=== PATIENT | female | born 1935 ===

== ENCOUNTER 2023-06-08 10:56 | Outpatient (AMB) | payer MEDICARE, BC, SELFPAY ==
--- NOTE | 2023-06-08 11:03 | A.OFFVIS_ITS ---
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 She reports here with daughter Betsy. Pts daughter reports there have been major changes in pt's life than she feels have contributed to some memory changes. Pts was placed in assisted living, she had to move out of her home, she's had 2 major falls requiring surgery. She has become forgetful, forgetting to pay bills, not as organized as before. 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 Allergies bacitracin Allergy (Intermediate, Verified 06/08/23 11:15) Hives codeine Allergy (Intermediate, Verified 06/08/23 11:15) Vomiting methimazole [From Tapazole] Allergy (Intermediate, Verified 06/08/23 11:15) Vomiting trazodone Allergy (Intermediate, Verified 06/08/23 11:15) Vomiting percocet Allergy (Mild, Uncoded 06/08/23 11:15) Anxiety Medication List - Last Reconciled 06/08/23 by Padmaja Fong MD donepezil 10 mg PO DAILY levothyroxine 88 mcg PO DAILY rosuvastatin 5 mg PO DAILY sertraline 25 mg PO DAILY warfarin 5 mg PO DAILY HPI HPI Comments History of Present Illness Details 87y/o right handed female comes for eval uation of short term memory issues. SHe is accompanied by her daughter who helps with history .The family noticed memory issues 2 years ago which has been worse for past 6 mths.she frequently forgets to take medications, needs help with medications now, unable to takes care of her bills and finances,forgets conversations, forgets to go to activities etc. she has meals delivered for her and she microwaves.she is at an independent fdc.she knows her children , grand children.No hallucinations, no delusions. she sleeps good but has poor sleep hygiene.she sleeps late and wakes up at noon. [facility] [place] [facility]. She is on sertraline for mood . But she denies any depression or anxiety. 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 [facility] Medical History Hyperlipidemia GERD (gastroesophageal reflux disease) Hypothyroid SVT (supraventricular tachycardia) Breast cancer Emphysema lung Osteoarthritis HTN (hypertension) Atrial fibrillation Mild cognitive impairment Pacemaker Surgical History H/O eye surgery H/O thyroidectomy H/O lumpectomy History of hip replacement Family History Father No problems noted. Mother No problems noted. Brother No problems noted. Sister No problems noted. Social History Household Members: None Housing: Apartment Alcohol intake: never Patient Tobacco Use Status: Former Tobacco user Years Smoked: x 24 years - 2 ppd quit at age 38 Physical Exam Vital Signs: Last Vital Signs Pulse 71 06/08/23 11:05 Resp 17 06/08/23 11:05 BP 146/82 H 06/08/23 11:05 Pulse Ox 94 06/08/23 11:05 Oxygen Delivery Method Room Air 06/08/23 11:05 BMI result Body Mass Index 23.0 Const General: cooperative, healthy appearing, comfortable and no acute distress Nutritional Appearance: average body habitus Orientation/consciousness: patient oriented x3 Neuro Other: Felix Proptosis L>R EOM- decrease left gaze General: patient oriented x3 and moves all extremities Cranial nerves: Yes Facial sensation intact/muscles of mastication intact, Yes Nystagmus not present, Yes Normal facial strength present, Yes Midline tongue present and Yes Symmetric palate elevation present Cognition (Neuro): normal cognition Gait exam (Neuro): Antalgic gait present Motor exam (neuro): 5/5 motor strength present throughout and Normal motor muscle tone present throughout Deep tendon reflexes (DTR's): Right triceps reflex intensity grade: 1+, Left triceps reflex intensity grade: 1+, Rt Biceps (C5, C6): 1+, Left biceps reflex intensity grade: 1+, Right brachioradialis reflex intensity grade: 1+, Left brachioradialis reflex intensity grade: 1+, Right patellar reflex intensity grade: 1+ and Left patellar reflex intensity grade: 1+ Coordination: [id number] test normal Orientation What is the (year) (season) (date) (day) (month)?: year, season, date, day and month Where are we (state) (county) (town or city) (hospital) (floor)?: state, county, town or city, hospital/clinic and floor Registration Name of 3 unrelated objects clearly and slowly, then ask patient to repeat all 3 of them. (1st repeat determines score. Make sure they can repeat all three): object 1, object 2 and object 3 Attention & Calculation (CHOOSE ONE) Spell WORLD backwards (DLROW): 1 letter Recall Ask patient to repeat the 3 items from question #3.: object 2 and object 3 Language Show patient a wristwatch & ask what it is. Repeat for pencil.: watch and pencil Ask the patient to repeat the phrase 'No ifs, ands, or buts' after you.: correct Ask the patient to 'take a piece of paper with their right hand' 'fold paper in half' 'place paper on floor': take paper in right hand, fold paper in half and place paper on floor Print the sentence 'CLOSE YOUR EYES' on a piece. If patient actually closes eyes then score.: followed written direction Give patient a blank piece of paper & ask to write a sentence. Score if it contains a noun & verb.: sentence contains subject and verb Ask patient to copy figure of intersecting pentagons exactly. Score if all 10 angles & 2 intersects are included.: all 10 angles present & 2 are intersected Score Score: 25 Assessment & Plan Assessment & Plan (1) Mild cognitive impairment: Comment: worsened by dysthymia, poor sleep Code(s): G31.84 - Mild cognitive impairment of uncertain or unknown etiology Plan Reviewed PCPs notes- CT labs etc I will trial her on memantine XR 7mg qd continue donepezil 10mg qd Increase sertraline 50mg qd Increase social stimulation Wear hearing aids consistently Add daily structure and sleep hygiene. Medications: New memantine 7 mg PO DAILY 30 ea 0RF sertraline 50 mg (2 x 25 mg) PO DAILY 30 tabs 6RF Coding Level of Care Code New Pt Level 4 (61112) Diagnoses Mild cognitive impairment G31.84
[2023-06-08 11:05] VITALS: BP 146/82; PULSE 71; RESP 17; O2SAT 94; BMI 23.0
== END 2023-06-08 11:56 | disposition home or self-care (01) ==
PROVIDERS: PCP Internal Medicine; Visit Provider Psychiatry & Neurology Neurology
DX: G31.84 Mild cognitive impairment of uncertain or unknown etiology (principal)
CPT/HCPCS: 99204

== ENCOUNTER → 2023-06-08 10:56 | Outpatient (BNVA) | payer MEDICARE, BC, SELFPAY | PROVIDERS: PCP Internal Medicine; Visit Provider Psychiatry & Neurology Neurology | DX: G31.84 Mild cognitive impairment of uncertain or unknown etiology (principal) | CPT/HCPCS: 99202 ==